=== PATIENT | female | born 1990 | race Caucasian/White ===

== ENCOUNTER 2017-07-27 05:38 | Emergency (ER) | payer OTHER ==
[2017-07-27 05:38] VITALS: BMI 48.2
[2017-07-27 05:50] VITALS: RESP 18; TEMP 98; O2SAT 100
--- NOTE | 2017-07-27 05:58 | ED PDOC ---
Arrival/HPI - General Chief Complaint: Female Genitourinary Time Seen by Provider: 07/27/17 05:55 Historian: Patient, Spouse - History of Present Illness Narrative History of Present Illness (Text): 07/27/17 05:55 Zhang Salguero is a 27 year old female, whose past medical history includes kidney stones, who presents to the Emergency department accompanied by complaining of sudden onset on left flank and left upper abdominal pain 4 hours prior to arrival. states pain has been gradually worsening and patient denies any significant relief after taking Tylenol at home. notes patient recently underwent gastric sleeve surgery 15 days prior. Patient denies any fever, chills, chest pain, shortness of breath, nausea, vomiting, diarrhea, neck pain, headache, dizziness, or any other complaints. PMD: Dr. Martha Ortega Time/Duration: 4-6 hours (4 hours DIRECTOR LOSS PREVENTION) Symptom Onset: Sudden Symptom Course: Unchanged Activities at Onset: Light Context: Home Past Medical History - Provider Review Nursing Documentation Reviewed: Yes - Cardiac Hx Cardiac Disorders: No - Pulmonary Hx Respiratory Disorders: No - Neurological Hx Neurological Disorder: No - HEENT Hx HEENT Disorder: No - Renal Hx Renal Disorder: Yes Hx Kidney Stones: Yes - Endocrine/Metabolic Hx Endocrine Disorders: No - Hematological/Oncological Hx Blood Disorders: No - Integumentary Hx Dermatological Disorder: No - Musculoskeletal/Rheumatological Hx Musculoskeletal Disorders: No - Gastrointestinal Hx Gastrointestinal Disorders: No - Genitourinary/Gynecological Hx Genitourinary Disorders: No - Psychiatric Hx Psychophysiologic Disorder: No Hx Substance Use: No - Surgical History Hx Section: Yes Hx Cholecystectomy: Yes Hx Gastric Bypass Surgery: Yes (13 days ago) Other/Comment: KIDNEY STONES REMOVAL - Anesthesia Hx Anesthesia: Yes Hx Anesthesia Reactions: No Hx Malignant Hyperthermia: No Family/Social History - Physician Review Nursing Documentation Reviewed: Yes Family/Social History: Unknown Family HX Smoking Status: Never Smoked Hx Alcohol Use: No Hx Substance Use: No Allergies/Home Meds Allergies/Adverse Reactions: Allergies No Known Allergies Allergy (Verified 07/27/17 05:46) Home Medications: Home Meds Medication Instructions Recorded Confirmed No Known Home Med 06/16/16 07/27/17 Review of Systems - Physician Review All systems were reviewed & negative as marked: Yes - Review of Systems Constitutional: Normal. absent: Fevers Eyes: Normal ENT: Normal Respiratory: Normal. absent: SOB, Cough Cardiovascular: Normal. absent: Chest Pain Gastrointestinal: Abdominal Pain. absent: Diarrhea, Nausea, Vomiting Genitourinary Female: Normal. absent: Dysuria, Frequency, Hematuria, Urine Output Changes Musculoskeletal: Back Pain (+left flank pain). absent: Neck Pain Skin: Normal. absent: Rash Neurological: Normal. absent: Headache, Dizziness Endocrine: Normal Hemo/Lymphatic: Normal Psychiatric: Normal Physical Exam Vital Signs Reviewed: Yes Vital Signs Temp Pulse Resp Pulse Ox 07/27/17 05:46 98.0 F 81 18 100 Temperature: Afebrile Blood Pressure: Normal Pulse: Regular Respiratory Rate: Normal Appearance: Positive for: Well-Appearing, Non-Toxic, Comfortable Pain Distress: None Mental Status: Positive for: Alert and Oriented X 3 - Systems Exam Head: Present: Atraumatic, Normocephalic Pupils: Present: PERRL Extroacular Muscles: Present: EOMI Conjunctiva: Present: Normal Mouth: Present: Moist Mucous Membranes Neck: Present: Normal Range of Motion Respiratory/Chest: Present: Clear to Auscultation, Good Air Exchange. No: Respiratory Distress, Accessory Muscle Use Cardiovascular: Present: Regular Rate and Rhythm, Normal S1, S2. No: Murmurs Abdomen: Present: Tenderness (Mild palpable tenderness to left upper abdomen), Normal Bowel Sounds. No: Distention, Peritoneal Signs Back: Present: Normal Inspection Upper Extremity: Present: Normal Inspection. No: Cyanosis, Edema Lower Extremity: Present: Normal Inspection. No: Edema Neurological: Present: GCS=15, CN II-XII Intact, Speech Normal Skin: Present: Warm, Dry, Normal Color. No: Rashes Psychiatric: Present: Alert, Oriented x 3, Normal Insight, Normal Concentration Medical Decision Making ED Course and Treatment: 07/27/17 05:55 Impression: 27 year old female complaining of left flank/left upper abdomen pain for 4 hours [employer] LOSS PREVENTION. Plan: -- Labs -- Urinalysis -- IV fluids -- Zofran -- Morphine -- Reassess and disposition Progress Notes: 07/27/17 07:[address] Roman, pending labs, Urinalysis, CT Abdomen and Pelvis, re-assessment, and disposition. - Lab Interpretations Lab Results: 07/27/17 06:19 Lab Results 07/27/17 06:26: Urine Color Dark yellow, Urine Appearance Sl cloudy, Urine pH 6.0, Ur Specific [place] >= 1.030, Urine Protein 100 H, Urine Glucose (UA) Negative, Urine Ketones >=80, Urine Blood Large H, Urine Nitrate Negative, Urine Bilirubin Moderate H, Urine Urobilinogen 1.0 H, Ur Leukocyte Esterase Trace H, Urine RBC Pending, Urine WBC Pending, Urine HCG, Qual Negative 07/27/17 06:19: PT 11.6, INR 1.07, APTT 30.2 07/27/17 06:19: WBC 8.0 D, RBC 4.87, Hgb 13.8, Hct 39.4, MCV 80.9, MCH 28.3, MCHC 35.0, RDW 14.0, Plt Count 387, MPV 9.2 - RAD Interpretation Radiology Orders: 07/27/17 05:58 CHEST PORTABLE [RAD] Stat 07/27/17 06:42 ABD & PELVIS W/O PO OR IV CONT [CT] Stat - Medication Orders Current Medication Orders: Sodium Chloride (Sodium Chloride 0.9%) 1,000 mls @ 999 mls/hr IV .Q1H1M STA Stop: 07/27/17 06:59 Last Admin: 07/27/17 06:27 Dose: 999 mls/hr eMAR Start Stop Document 07/27/17 06:27 PRISCA (Rec: 07/27/17 06:28 PRISCA [id number]) Intravenous Solution Start Date 07/27/17 Start Time 06:28 End Date 07/27/17 End time 07:28 Total Infusion Time 60 Discontinued Medications Morphine Sulfate (Morphine) 2 mg IVP STAT STA Stop: 07/27/17 06:00 Last Admin: 07/27/17 06:26 Dose: 2 mg MAR Pain Assessment Document 07/27/17 06:26 PRISCA (Rec: 07/27/17 06:27 PRISCA [id number]) Pain Reassessment Is this a pain reassessment? No IVP Administration Document 07/27/17 06:26 PRISCA (Rec: 07/27/17 06:27 PRISCA [id number]) Charges for Administration # of IVP Administrations 1 Ondansetron HCl (Zofran Inj) 4 mg IVP ONCE ONE Stop: 07/27/17 06:00 Last Admin: 09/26/17 06:27 Dose: 4 mg IVP Administration Document 07/27/17 06:27 PRISCA (Rec: 07/27/17 06:27 PRISCA [id number]) Charges for Administration # of IVP Administrations 1 - Scribe Statement The provider has reviewed the documentation as recorded by the Arslanibedita Guzman Provider Scribe Attestation: All medical record entries made by the Scribe were at my direction and personally dictated by me. I have reviewed the chart and agree that the record accurately reflects my personal performance of the history, physical exam, medical decision making, and the department course for this patient. I have also personally directed, reviewed, and agree with the discharge instructions and disposition. Disposition/Present on Arrival - Present on Arrival Any Indicators Present on Arrival: No History of DVT/PE: No History of Uncontrolled Diabetes: No Urinary Catheter: No History of Decub. Ulcer: No History Surgical Site Infection Following: None - Disposition Have Diagnosis and Disposition been Completed?: No Diagnosis: Flank pain, Abdominal pain Disposition Time: 07:00 Condition: STABLE Referrals: Maia Ortega MD [Primary Care Provider] - Follow up with primary Forms: [employer] (Faroese)
[2017-07-27] MEDS ORDERED: Morphine 2 mg/ml ISec IVP STA (05:59)
[2017-07-27] MEDS ORDERED: Sodium Chloride 0.9% 1,000 ML IV STA (05:59)
[2017-07-27 06:25] LABS: HEMATOCRIT 39.4 % (36.0-48.0); MEAN CELL VOLUME 80.9 fl (80.0-105.0); MEAN CORPUSCULAR HEMOGLOBIN 28.3 pg (25.0-35.0); MEAN PLATELET VOLUME 9.2 fl (7.0-11.0)
[2017-07-27 06:36] LABS: INR 1.07 (0.93-1.08); PARTIAL THROMBOPLASTIN TIME 30.2 Seconds (23.7-30.8)
[2017-07-27 06:38] LABS: ALB/GLOB RATIO 1.3 (1.1-1.8); ALKALINE PHOSPHATASE 80 U/L (38-126); ALT/SGPT 41 U/L (7-56); AST/SGOT 28 U/L (14-36); BILIRUBIN,TOTAL 0.7 mg/dL (0.2-1.3); BLOOD UREA NITROGEN 12 mg/dL (7-21); CALCIUM 9.4 mg/dL (8.4-10.5); CARBON DIOXIDE 23 mmol/L (21-33); CHLORIDE 104 mmol/L (98-107); GFR AFRICAN-AMERICAN > 60; GLUCOSE,RANDOM 91 mg/dL (70-110); POTASSIUM 4.2 mmol/L (3.6-5.0); SODIUM 142 mmol/L (132-148); TOTAL PROTEIN 7.6 g/dL (5.8-8.3)
[2017-07-27 06:42] LABS: URINE BILIRUBIN MODERATE (NEGATIVE); URINE BLOOD LARGE (NEGATIVE); URINE GLUCOSE (UA) NEGATIVE (NEGATIVE); URINE KETONE >=80 mg/dL (NEGATIVE); URINE LEUKOCYTE ESTERASE TRACE Leu/uL (NEGATIVE); URINE PROTEIN 100 mg/dL (<30 mg/dL)
[2017-07-27 06:46] LABS: URINE APPEARANCE SL CLOUDY (CLEAR); URINE COLOR DARK YELLOW (YELLOW)
[2017-07-27 06:55] LABS: URINE BACTERIA SMALL (NEG); URINE EPITHELIAL CELLS MANY /hpf (0-5)
--- NOTE | 2017-07-27 08:48 | CT ---
PROCEDURE: CT Abdomen and Pelvis without intravenous contrast HISTORY: left flank/abd. pain COMPARISON: None. TECHNIQUE: Without contrast.. Contrast Dose: 0 Radiation dose: Total exam DLP = 1685.67 mGy-cm. This CT exam was performed using one or more of the following dose reduction techniques: Automated exposure control, adjustment of the mA and/or kV according to patient size, and/or use of iterative reconstruction technique. FINDINGS: LOWER THORAX: Unremarkable. LIVER: Unremarkable. No gross lesion or ductal dilatation. GALLBLADDER AND BILE DUCTS: Status post cholecystectomy PANCREAS: Unremarkable. No gross lesion or ductal dilatation. SPLEEN: Unremarkable. ADRENALS: Unremarkable. No mass. KIDNEYS AND URETERS: Minimal left hydronephrosis and proximal hydroureter. 2 mm nonobstructing left upper pole renal calculus. No ureteral calculus. No renal mass. VASCULATURE: Unremarkable. No aortic aneurysm. BOWEL: Status post gastric sleeve procedure. No bowel obstruction. No other abnormal bowel loops. APPENDIX: Unremarkable. Normal appendix. PERITONEUM: Unremarkable. No free fluid. No free air. LYMPH NODES: Unremarkable. No enlarged lymph nodes. BLADDER: Unremarkable. REPRODUCTIVE: Uterus significant for central IUD. BONES: No acute fracture. OTHER FINDINGS: None. IMPRESSION: 2 mm nonobstructing left renal calculus. Minimal left hydronephrosis and proximal hydroureter. The possibility of a recently passed urinary calculus should be considered. There is no bladder calculus identified. Status post gastric sleeve procedure IUD. A-P
--- NOTE | 2017-07-27 08:51 | RAD ---
HISTORY: abdominal pain COMPARISON: No prior. FINDINGS: LUNGS: No active pulmonary disease. PLEURA: No significant pleural effusion identified, no pneumothorax apparent. CARDIOVASCULAR: Normal. OSSEOUS STRUCTURES: No significant abnormalities. VISUALIZED UPPER ABDOMEN: Normal. OTHER FINDINGS: None. IMPRESSION: No active disease.
[2017-07-27 09:14] VITALS: BP 108/79; PULSE 78
== END 2017-07-27 09:13 | disposition home or self-care (01) ==
LOC: ED 05:38
DX: R10.9 Unspecified abdominal pain (principal)
CPT/HCPCS: 71010; 74176; 80053; 81001; 84703; 85027; 85610; 85730; 87086; 96361; 96374; 96375; 99284; J2270; J2405; J7040